=== PATIENT | male | born 1930 ===

== ENCOUNTER 2016-12-31 14:59 | Emergency (ER) | payer MEDICARE ==
[2016-12-31 15:06] VITALS: BP 150/63; PULSE 73; RESP 16; TEMP 99; O2SAT 96
--- NOTE | 2016-12-31 15:31 | ED PDOC ---
HPI: Seizure Time Seen by Provider: 12/31/16 14:59 Chief Complaint (Nursing): Seizure Chief Complaint (Provider): Seizure History Per: Family () History/Exam Limitations: no limitations Recent Seizure Activity Began: Hours Ago: (3.5) Length Of Seizures (Duration): Minutes (20) Associated Symptoms: denies: Incontinence Of Urine, Incontinence Of Stool Additional Complaint(s): 86 y/o male with a past medical history of seizure disorder who presents to the emergency department via ambulance accompanied by who witnessed 1 seizure this afternoon described as an absence seizure. As per history from , patient had 2 seizures yesterday as well which all lasted approximately 20 minutes each. Patient has no recollection of events. Denies shaking or incontinence. PMD: Dr. Dedrick Carter MD Past Medical History Reviewed: Historical Data, Nursing Documentation, Vital Signs Vital Signs: Last Vital Signs Temp 99.0 F 12/31/16 15:02 Pulse 73 12/31/16 15:02 Resp 16 12/31/16 15:02 BP 150/63 12/31/16 15:02 Pulse Ox 96 12/31/16 17:42 - Medical History PMH: Seizures - Family History Family History: States: Unknown Family Hx - Home Medications Home Medications: Ambulatory Orders Medication Instructions Recorded Donepezil [Aricept] 10 mg PO DAILY 12/31/16 Folic Acid 1 mg PO DAILY 12/31/16 Levetiracetam [Keppra] 250 mg PO BID 12/31/16 Memantine [Namenda] 10 mg PO BID 12/31/16 Phenytoin Sodium Extended 100 mg PO Q12 12/31/16 [Phenytoin Sodium Extended] Rosuvastatin Calcium [Crestor] 5 mg PO DAILY 12/31/16 - Allergies Allergies/Adverse Reactions: Allergies Allergy/AdvReac Type Severity Reaction Status Date / Time No Known Allergies Allergy Verified 12/31/16 15:06 Review of Systems ROS Statement: Except As Marked, All Systems Reviewed And Found Negative Genitourinary Male: Negative for: Incontinence Musculoskeletal: Negative for: Other (Shaking) Neurological: Positive for: Seizures (2 yesterday and 1 today) Physical Exam - Reviewed Nursing Documentation Reviewed: Yes Vital Signs Reviewed: Yes - Physical Exam Appears: Positive for: Non-toxic, No Acute Distress Head Exam: Positive for: ATRAUMATIC, NORMAL INSPECTION, NORMOCEPHALIC Skin: Positive for: Normal Color, Warm, Dry Eye Exam: Positive for: Normal appearance, EOMI, PERRL Neck: Positive for: Normal, Supple Cardiovascular/Chest: Positive for: Regular Rate, Rhythm. Negative for: Murmur Respiratory: Positive for: Normal Breath Sounds. Negative for: Accessory Muscle Use, Respiratory Distress Gastrointestinal/Abdominal: Positive for: Normal Exam, Soft. Negative for: Tenderness Extremity: Positive for: Normal ROM (Full). Negative for: Pedal Edema, Deformity Neurologic/Psych: Positive for: Alert, Oriented (x3). Negative for: Motor/ Sensory Deficits (Focal) - Laboratory Results Result Diagrams: 12/31/16 16:43 12/31/16 16:43 - ECG O2 Sat by Pulse Oximetry: 96 (RA) Pulse Ox Interpretation: Normal Medical Decision Making Medical Decision Making: Time: 15:00 Initial impression: Witnessed Seizure Initial plan: --Head CT --EKG --Alcohol Serum --CMP --Drug Screen, Urine --Urine DIP --CBC w/ diff --Reevaluation Time: 16:43 --Head CT FINDINGS: HEMORRHAGE: No acute parenchymal, subarachnoid or extra-axial hemorrhage. Hemorrhage. BRAIN: Minor chronic periventricular deep and subcortical white matter ischemic changes are present. Tiny chronic appearing lacunar type infarct left caudate and right thalamus. Moderate generalized volume loss. VENTRICLES: No obstructive hydrocephalus CALVARIUM: There are no acute calvarial fracture seen. . PARANASAL SINUSES: There is mild sclerosis and thickening of the posterolateral wall right maxillary antrum felt to be postinflammatory in etiology. . . Minor mucosal thickening also present. Questionable medial wall antrostomy defect. MASTOID AIR CELLS: Unremarkable as visualized. No inflammatory changes. OTHER FINDINGS: Changes of bilateral cataract surgery present. IMPRESSION: No acute intracranial hemorrhage. Mild chronic white matter ischemic changes. 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 Scribe Attestation: Documented by Anju Michaels, acting as a scribe for Isac Puga MD. Discussed with . Suggests increasing dose of Keppra and will follow in office in [place] on Wednesday. Provider Scribe Attestation: All medical record entries made by the Scribe were at my direction and personally dictated by me. I have reviewed the chart and agree that the record accurately reflects my personal performance of the history, physical exam, medical decision making, and the department course for this patient. I have also personally directed, reviewed, and agree with the discharge instructions and disposition. Disposition - Clinical Impression Clinical Impression: Seizure disorder - Patient ED Disposition Is Patient to be Admitted: No - Disposition Referrals: Cesar Argueta MD [Staff Provider] - Disposition: Routine/Home Disposition Time: 17:41 Condition: FAIR Additional Instructions: Increase Keppra to 500mg twice daily Instructions: Recurrent Seizures in Adults (ED) Forms: [employer] Connect (Welsh)
--- NOTE | 2016-12-31 16:46 | CT ---
PROCEDURE: CT scan brain dated 12/31/2016 HISTORY: r/o bleed COMPARISON: None available. TECHNIQUE: Axial computed tomography images were obtained through the head/brain without intravenous contrast. Radiation dose: Total exam DLP = 813.71 mGy-cm. This CT exam was performed using one or more of the following dose reduction techniques: Automated exposure control, adjustment of the mA and/or kV according to patient size, and/or use of iterative reconstruction technique. FINDINGS: HEMORRHAGE: No acute parenchymal, subarachnoid or extra-axial hemorrhage. Hemorrhage. BRAIN: Minor chronic periventricular deep and subcortical white matter ischemic changes are present. Tiny chronic appearing lacunar type infarct left caudate and right thalamus. Moderate generalized volume loss. VENTRICLES: No obstructive hydrocephalus CALVARIUM: There are no acute calvarial fracture seen. . PARANASAL SINUSES: There is mild sclerosis and thickening of the posterolateral wall right maxillary antrum felt to be postinflammatory in etiology. . . Minor mucosal thickening also present. Questionable medial wall antrostomy defect. MASTOID AIR CELLS: Unremarkable as visualized. No inflammatory changes. OTHER FINDINGS: Changes of bilateral cataract surgery present. IMPRESSION: No acute intracranial hemorrhage. Mild chronic white matter ischemic changes. 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
[2016-12-31 16:57] LABS: BASO # 0.1 K/uL (0.0-0.2); BASO % 0.5 % (0.0-2.0); EOS # 0.1 K/uL (0.0-0.7); EOS % 1.2 % (0.0-4.0); HEMATOCRIT 41.2 % (35.0-51.0); LYMPH % 9.8 % (20.0-40.0); MEAN CELL VOLUME 95.3 fl (80.0-94.0); MEAN CORPUSCULAR HEMOGLOBIN 32.4 pg (27.0-31.0); MEAN PLATELET VOLUME 9.1 fl (7.2-11.7); MONO # 0.8 K/uL (0.0-0.8); MONO % 7.8 % (0.0-10.0); NEUT # 8.3 K/uL (1.8-7.0); NEUT % 80.7 % (50.0-75.0); PLATELET COUNT 188 K/uL (130-400); RED CELL DISTRIBUTION WIDTH 12.9 % (11.5-14.5); WHITE BLOOD COUNT 10.3 K/uL (4.8-10.8)
[2016-12-31 17:12] LABS: ALB/GLOB RATIO 1.4 (1.0-2.1); ALCOHOL SERUM < 10 mg/dl (0-10); ALKALINE PHOSPHATASE 105 U/L (38-126); ALT/SGPT 30 U/L (21-72); AST/SGOT 29 U/L (17-59); BILIRUBIN,TOTAL 0.5 mg/dl (0.2-1.3); BLOOD UREA NITROGEN 13 mg/dl (9-20); CALCIUM 9.2 mg/dL (8.4-10.2); CARBON DIOXIDE 26 mmol/L (22-30); CHLORIDE 105 mmol/L (98-107); GFR AFRICAN-AMERICAN > 60; GLUCOSE,RANDOM 118 mg/dL (75-110); SODIUM 141 mmol/l (132-148); TOTAL PROTEIN 7.3 G/DL (6.3-8.2)
[2016-12-31 19:05] LABS: BASOPHIL 1 % (0-2); EOSINOPHIL 2 % (0-7); NEUTROPHIL 81 % (42-75); TOTAL CELLS COUNTED 100
--- NOTE | 2017-01-01 09:13 | CARD ---
APPROVED REPORT EKG Measurement Heart [id number] <Conclusion> Normal sinus rhythm Nonspecific T wave abnormality Abnormal ECG
== END 2016-12-31 19:28 | disposition home or self-care (01) ==
LOC: H.ER 14:59
DX: G40.909 Epilepsy, unspecified, not intractable, without status epilepticus (principal)
CPT/HCPCS: 70450; 80053; 82948; 85025; 93005; 99285; G0480

== ENCOUNTER 2018-04-13 12:01 | Observation (INO) | payer MEDICARE ==
[2018-04-13 12:03] VITALS: BMI 26.3
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
[2018-04-13 13:34] LABS: BASO % 0.5 % (0.0-2.0); EOS # 0.6 K/uL (0.0-0.7); EOS % 6.2 % (0.0-4.0); HEMOGLOBIN 13.9 g/dL (12.0-18.0); LYMPH # 1.2 K/uL (1.0-4.3); LYMPH % 12.7 % (20.0-40.0); MEAN CELL VOLUME 99.5 fl (80.0-94.0); MEAN CORPUSCULAR HEMOGLOBIN 33.2 pg (27.0-31.0); MEAN CORPUSCULAR HGB CONC 33.4 g/dL (33.0-37.0); MEAN PLATELET VOLUME 9.5 fl (7.2-11.7); MONO # 0.8 K/uL (0.0-0.8); MONO % 8.9 % (0.0-10.0); NEUT # 6.5 K/uL (1.8-7.0); NEUT % 71.7 % (50.0-75.0); RBC 4.18 Mil/uL (4.40-5.90); RED CELL DISTRIBUTION WIDTH 13.3 % (11.5-14.5); WHITE BLOOD COUNT 9.1 K/uL (4.8-10.8)
[2018-04-13 13:37] LABS: ALB/GLOB RATIO 1.3 (1.0-2.1); ALBUMIN 4.2 g/dL (3.5-5.0); ALT/SGPT 27 U/L (21-72); AST/SGOT 20 U/L (17-59); BLOOD UREA NITROGEN 14 mg/dl (9-20); CALCIUM 8.9 mg/dL (8.4-10.2); GFR NON-AFRICAN AMERICAN > 60
--- NOTE | 2018-04-13 14:08 | CT ---
Date of service: 04/13/2018 PROCEDURE: CT HEAD WITHOUT CONTRAST. HISTORY: r/o bleed COMPARISON: 12/31/2016 TECHNIQUE: Axial computed tomography images were obtained through the head/brain without intravenous contrast. Radiation dose: Total exam DLP = 818.47 mGy-cm. This CT exam was performed using one or more of the following dose reduction techniques: Automated exposure control, adjustment of the mA and/or kV according to patient size, and/or use of iterative reconstruction technique. FINDINGS: HEMORRHAGE: No intracranial hemorrhage. BRAIN: No mass effect or edema. Cerebral atrophy and chronic microvascular ischemic changes tiny subcortical/deep white matter The prior right thalamic and left caudate nucleus lacunar infarcts are similar. VENTRICLES: Unremarkable. No hydrocephalus. CALVARIUM: Unremarkable. PARANASAL SINUSES: Unremarkable as visualized. No significant inflammatory changes. MASTOID AIR CELLS: There is less focal retention cyst and/or focal mucosal thickening along the right maxillary sinus wall. The chronic right maxillary sinus wall cortical thickening connoting current current chronic inflammatory changes is a similar finding. No inflammatory changes. OTHER FINDINGS: None. IMPRESSION: No interval intracranial hemorrhage or mass effect. Cerebral atrophy and chronic microvascular ischemic changes tiny subcortical/deep white matter The prior right thalamic and left caudate nucleus lacunar infarcts are similar. Other findings as above.. No interval pathology noted
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
--- NOTE | 2018-04-13 19:28 | CARD ---
APPROVED REPORT Date of service: 04/13/2018 EKG Measurement Heart [id number] ID [id number] <Conclusion> Normal sinus rhythm Normal ECG
[2018-04-14] MEDS ORDERED: Pneumococcal 23-Valent Vaccine IM ONE (08:26)
[2018-04-14] MEDS: Enoxaparin 40 mg Syringe SC SCH (08:37)
--- NOTE | 2018-04-14 08:53 | CP.PCM.PN ---
Subjective - Date & Time of Evaluation Date of Evaluation: 04/14/18 Time of Evaluation: 07:45 - Subjective Subjective: Patient seen and examined at bedside. is also at bedside. Patient is sitting up in bed, appears less confused than yesterday. denies noticing any seizure activity. Patient denies headaches, visual changes, n/v. Charts, labs, and nurse notes reviewed. Objective - Vital Signs/Intake and Output Vital Signs (last 24 hours): Temp Pulse Resp BP Pulse Ox 97.5 F L 61 20 139/81 95 04/14/18 08:44 04/14/18 08:44 04/14/18 08:44 04/14/18 08:44 04/14/18 08:44 - Medications Medications: Current Medications Atorvastatin Calcium (Lipitor) 10 mg PO HS [facility] Last Admin: 04/13/18 21:18 Dose: 10 mg Donepezil HCl (Aricept) 10 mg PO HS [facility] Last Admin: 04/13/18 21:17 Dose: 10 mg Enoxaparin Sodium (Lovenox) 40 mg SC DAILY [facility]; Protocol Last Admin: 04/14/18 08:37 Dose: 40 mg Folic Acid (Folic Acid) 1 mg PO DAILY [facility] Last Admin: 04/14/18 08:38 Dose: 1 mg Levetiracetam (Keppra) 500 mg PO Q12 [facility] Last Admin: 04/14/18 08:37 Dose: 500 mg Memantine (Namenda) 10 mg PO Q12 [facility] Last Admin: 04/14/18 08:38 Dose: 10 mg Phenytoin Sodium (Dilantin) 100 mg PO Q12 [facility] Last Admin: 04/14/18 08:38 Dose: 100 mg - Labs Labs: 04/13/18 13:12 04/13/18 13:12 - Constitutional Appears: No Acute Distress - Eye Exam Eye Exam: EOMI, PERRL - ENT Exam ENT Exam: Mucous Membranes Moist - Respiratory Exam Respiratory Exam: Clear to Ausculation Bilateral - Cardiovascular Exam Cardiovascular Exam: REGULAR RHYTHM, +S1, +S2 - Neurological Exam Neurological Exam: Alert, Awake, CN II-XII Intact - Psychiatric Exam Psychiatric exam: Normal Affect Assessment and Plan - Assessment and Plan (Free Text) Assessment: 87 y/o male w/ hx of seizures and Alzheimer's admitted for observation for concern of syncope. Syncope vs. breakthrough seizure EKG: normal sinus rhythm Echo and carotid Doppler pending Head CT: no signs of hemorrhage or acute changes Negative tox screen Discussed case w/ patient's neurologist, Dr. Argueta; EEG ordered and will increase Keppra 500mg PO BID to 1000mg PO BID, Cont. 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
--- NOTE | 2018-04-14 15:41 | US ---
Date of service: 04/13/2018 PROCEDURE: Duplex ultrasound of the carotid and vertebral arteries. HISTORY: syncope COMPARISON: 05/21/2011 TECHNIQUE: Grayscale and duplex Doppler evaluation of the cervical carotid and vertebral arteries were performed. The common carotid, carotid bifurcations and cervical ICA and proximal ECA were evaluated. The vertebral arteries were evaluated for gross patency and direction. FINDINGS: RIGHT CAROTID ARTERIES: Common Carotid Artery: Maximal flow velocity of 52.0 cm/s. Carotid Bifurcation: Heterogeneous plaque formation. Internal Carotid Artery:Heterogeneous plaque formation. Maximal flow velocity of 63.6 cm/s. External Carotid Artery (proximal branches): Maximal flow velocity of 47.3 cm/s. ICA/CCA Ratio: 1.5 LEFT CAROTID ARTERIES: Common Carotid Artery: Maximal flow velocity of 47.2 cm/s. Carotid Bifurcation: Intimal thickening is present Internal Carotid Artery:Heterogeneous plaque formation. Maximal flow velocity of 55.3 cm/s. External Carotid Artery (proximal branches): Maximal flow velocity of 69.1 cm/s. ICA/CCA Ratio: 1.2 VERTEBRAL ARTERIES: Right Vertebral Artery: Patent. Antegrade flow. Left Vertebral Artery: Patent. Antegrade flow. OTHER FINDINGS: Atherosclerotic calcification present. IMPRESSION: No significant interval change compared to the prior examination(s). Right ICA degree of stenosis: Less than 50% Left ICA degree of stenosis: Less than 50% Reference Internal Carotid Artery (ICA) Peak Systolic Velocity (PSV) for above: 1. Less than 50% stenosis less than 125 cm/s peak systolic velocity 2. 50-69% stenosis 125-230cm/s peak systolic velocity 3. Greater than 70% but less than near occlusion greater than 230 cm/s peak systolic velocity
--- NOTE | 2018-04-14 19:07 | CARD ---
APPROVED REPORT Date of service: 04/14/2018 EXAM: Two-dimensional and M-mode echocardiogram with Doppler and color Doppler. Other Information Quality : GoodRhythm : NSR INDICATION Syncope 2D DIMENSIONS IVSd1.02 (0.7-1.1cm)LVDd4.16 (3.9-5.9cm) LVOT Diameter1.87 (1.8-2.4cm)PWd0.69 (0.7-1.1cm) IVSs1.45 (0.8-1.2cm)LVDs2.68 (2.5-4.0cm) FS (%) 35.4 %PWs1.14 (0.8-1.2cm) M-Mode DIMENSIONS Left Atrium (MM)5.07 (2.5-4.0cm)IVSd1.10 (0.7-1.1cm) Aortic Root3.03 (2.2-3.7cm)LVDd4.36 (4.0-5.6cm) Aortic Cusp Exc.1.88 (1.5-2.0cm)PWd0.80 (0.7-1.1cm) IVSs1.38 cmFS (%) 22 % LVDs3.42 (2.0-3.8cm)PWs1.27 cm Aortic Valve AoV Peak Yeisxyaq567.9cm/sAoV VTI32.9cmAO Peak GR.10mmHg LVOT Peak Lfsmzzkh054.7cm/Mra Mean GR.6mmHgAVA (VMAX)1.05cm2 AI P 1/2 Jsog692dn Mitral Valve MV E Mzhvdepd831.9cm/sMV DECEL YYUB251upWA A Mzpujmno112.9cm/s MV CSB202rmI/A ratio1.1MVA (PHT)2.06cm2 TDI Lateral E' Peak V8.07cm/sMedial E' Peak V8.64cm/sE/Lateral E'14.1 E/Medial E'13.2 Tricuspid Valve TR Peak Ixirqsil396yz/sRAP [id number] Peak Gr.29mmHg [id number] LEFT VENTRICLE The left ventricle is normal size. There is normal left ventricular wall thickness. The left ventricular systolic function is normal. The estimated ejection fraction is 55-60% No regional wall motion abnormalities noted.. Transmitral Doppler flow pattern is Grade II-pseudonormal filling dynamics. No left ventricle thrombus noted on this study. There is no ventricular septal defect visualized. There is no left ventricular aneurysm. There is no mass noted in the left ventricle. RIGHT VENTRICLE The right ventricle is normal size. There is normal right ventricular wall thickness. The right ventricular systolic function is normal. ATRIA The left atrium is moderately dilated. The right atrium size is normal. The interatrial septum is intact with no evidence for an atrial septal defect. AORTIC VALVE The aortic valve is normal in structure. Mild to moderate aortic regurgitation is present. There is no aortic valvular stenosis. There is no aortic valvular vegetation. MITRAL VALVE The mitral valve is normal in structure. There is no evidence of mitral valve prolapse. There is no mitral valve stenosis. There is mild to moderate mitral valve regurgitation noted. TRICUSPID VALVE The tricuspid valve is normal in structure. There is moderate tricuspid valve regurgitation noted. RVSP is calculated at 43 mm Hg. There is no tricuspid valve prolapse or vegetation. There is no tricuspid valve stenosis. PULMONIC VALVE The pulmonary valve is normal in structure. There is trace pulmonic valvular regurgitation. There is no pulmonic valvular stenosis. GREAT VESSELS The aortic root is normal in size. The ascending aorta is normal in size. The pulmonary artery is normal. The IVC is normal in size and collapses >50% with inspiration. PERICARDIAL EFFUSION There is no pericardial effusion. There is no pleural effusion. <Conclusion> The estimated ejection fraction is 55-60% Transmitral Doppler flow pattern is Grade II-pseudonormal filling dynamics. The left atrium is moderately dilated. Mild to moderate aortic regurgitation is present. There is mild to moderate mitral valve regurgitation noted. There is moderate tricuspid valve regurgitation noted. RVSP is calculated at 43 mm Hg.
[2018-04-15 05:18] VITALS: O2SAT 97
[2018-04-15 07:41] VITALS: BP 160/61; PULSE 66; RESP 20; TEMP 99.8
--- NOTE | 2018-04-15 08:48 | CP.PCM.DIS ---
Provider - Provider Date of Admission: 04/13/18 14:40 Attending physician: Radha Ruelas DO Consults: 04/14/18 20:27 Neurology Consult Routine Comment: Consulting Provider: Cisco Rodriguez Consulting Physician: Cisco Rodriguez Reason for Consult: Syncope Time Spent in preparation of Discharge (in minutes): 30 Diagnosis - Discharge Diagnosis (1) Seizure disorder Status: Chronic Comment: Pending EEG results. Pending Keppra results, but lab stated they received it yesterday, will take 2 days to get results. Keppra was increased to 1000 mg BID. F/U with Neuro, Dr. Argueta on wednesday Hospital Course - Lab Results Lab Results: Most Recent Lab Values WBC 9.1 K/uL (4.8-10.8) 04/13/18 13:12 RBC 4.18 Mil/uL (4.40-5.90) L 04/13/18 13:12 Hgb 13.9 g/dL (12.0-18.0) 04/13/18 13:12 Hct 41.6 % (35.0-51.0) 04/13/18 13:12 MCV 99.5 fl (80.0-94.0) H D 04/13/18 13:12 MCH 33.2 pg (27.0-31.0) H 04/13/18 13:12 MCHC 33.4 g/dL (33.0-37.0) 04/13/18 13:12 RDW 13.3 % (11.5-14.5) 04/13/18 13:12 Plt Count 152 K/uL (130-400) 04/13/18 13:12 MPV 9.5 fl (7.2-11.7) 04/13/18 13:12 Neut % (Auto) 71.7 % (50.0-75.0) 04/13/18 13:12 Lymph % (Auto) 12.7 % (20.0-40.0) L 04/13/18 13:12 Jones % (Auto) 8.9 % (0.0-10.0) 04/13/18 13:12 Eos % (Auto) 6.2 % (0.0-4.0) H 04/13/18 13:12 Baso % (Auto) 0.5 % (0.0-2.0) 04/13/18 13:12 Neut # (Auto) 6.5 K/uL (1.8-7.0) 04/13/18 13:12 Lymph # (Auto) 1.2 K/uL (1.0-4.3) 04/13/18 13:12 Jones # (Auto) 0.8 K/uL (0.0-0.8) 04/13/18 13:12 Eos # (Auto) 0.6 K/uL (0.0-0.7) 04/13/18 13:12 Baso # (Auto) 0.0 K/uL (0.0-0.2) 04/13/18 13:12 Sodium 141 mmol/l (132-148) 04/13/18 13:12 Potassium 4.0 MMOL/L (3.6-5.0) 04/13/18 13:12 Chloride 104 mmol/L (98-107) 04/13/18 13:12 Carbon Dioxide 25 mmol/L (22-30) 04/13/18 13:12 Anion Gap 16 (10-20) 04/13/18 13:12 BUN 14 mg/dl (9-20) 04/13/18 13:12 Creatinine 1.0 mg/dl (0.8-1.5) 04/13/18 13:12 Est GFR ( Amer) > 60 04/13/18 13:12 Est GFR (Non-Af Amer) > 60 04/13/18 13:12 Random Glucose 102 mg/dL (75-110) 04/13/18 13:12 Calcium 8.9 mg/dL (8.4-10.2) 04/13/18 13:12 Total Bilirubin 0.5 mg/dl (0.2-1.3) 04/13/18 13:12 AST 20 U/L (17-59) 04/13/18 13:12 ALT 27 U/L (21-72) 04/13/18 13:12 Alkaline Phosphatase 122 U/L (38-126) 04/13/18 13:12 Total Protein 7.5 G/DL (6.3-8.2) 04/13/18 13:12 Albumin 4.2 g/dL (3.5-5.0) 04/13/18 13:12 Globulin 3.3 gm/dL (2.2-3.9) 04/13/18 13:12 Albumin/Globulin Ratio 1.3 (1.0-2.1) 04/13/18 13:12 Phenytoin 6.8 ug/ML (10-20) L 04/14/18 04:35 - Hospital Course Hospital Course: 87 y/o male w/ hx of seizures and Alzheimer's admitted for suspected seizure episode. On admission patient vital signs were stable. Asymptomatic on admission. No evidence of seizure episode overnight. Pt's Neurology was consulted, Dr. Argueta. Contacted by phone. EEG was done at bedside, but still pending results. and will increase Keppra 500 mg PO BID to 1000 mg PO BID, Cont. Phenytoin 100mg PO BID. Phenytoin level: 6.8, Keppra levels pending. Neuro will f/u keppra levels as outpatient. Head CT reported as no evidence of acute findings, no intracranial hemorrhage. Carotid US reported as less than 50 % in Right, and left ICA. Echocardiogram reported as EF : 55-60 %, mild-mod aortic regurg, mild-mod mitral regurg, mod tricusp regur. Echo report discussed with family. Pt nedds F/U with PMD, and Cardiology as outpatient. Also as per neuro, Dr. Argueta, f/u in his office on next wednesday. Pt, and family informed of f/u. - Date & Time of H&P Date of H&P: 04/13/18 Time of H&P: 15:40 Discharge Exam - Head Exam Head Exam: ATRAUMATIC, NORMAL INSPECTION - Eye Exam Eye Exam: Normal appearance - ENT Exam ENT Exam: Mucous Membranes Moist - Respiratory Exam Respiratory Exam: Clear to PA & Lateral, NORMAL BREATHING PATTERN. absent: Prolonged Expiratory Phase, Rales, Rhonchi, Respiratory Distress, Stridor - Cardiovascular Exam Cardiovascular Exam: REGULAR RHYTHM, +S1, +S2 - GI/Abdominal Exam GI & Abdominal Exam: Normal Bowel Sounds, Soft. absent: Guarding, Rebound, Rigid, Tenderness - Back Exam Back exam: NORMAL INSPECTION. absent: CVA tenderness (L), CVA tenderness (R) - Neurological Exam Neurological exam: Alert, CN II-XII Intact, Normal Gait, Oriented x3 - Psychiatric Exam Psychiatric exam: Normal Affect, Normal Mood - Skin Skin Exam: Dry, Intact, Normal Color Discharge Plan - Discharge Medications Prescriptions: Cyanocobalamin [Vitamin B12 100 mcg Tab] 100 mcg PO DAILY 30 Days tab levETIRAcetam [Keppra] 1,000 mg PO BID #60 tab - Follow Up Plan Condition: STABLE Disposition: HOME/ ROUTINE Patient education suggested?: Yes Instructions: Seizures, Adult (DC), Syncope (Fainting) (DC) Referrals: Cesar Argueta MD [Staff Provider] - Kunal Jones MD [Staff Provider] - Cisco Rodriguez MD [Medical Doctor] -
[2018-04-15] MEDS: Enoxaparin 40 mg Syringe SC SCH (08:54)
== END 2018-04-15 11:32 | disposition home or self-care (01) ==
LOC: H.ER 12:01 → H.ERHOLD 14:40 → H.TEL 18:19
PROVIDERS: ADMIT Student in an Organized Health Care Education/Training Program; ATTEND Student in an Organized Health Care Education/Training Program
DX: G40.909 Epilepsy, unspecified, not intractable, without status epilepticus (principal); I08.0 Rheumatic disorders of both mitral and aortic valves; Z82.49 Family history of ischemic heart disease and other diseases of the circulatory system; Z83.3 Family history of diabetes mellitus; Z87.11 Personal history of peptic ulcer disease; Z87.891 Personal history of nicotine dependence; Z90.49 Acquired absence of other specified parts of digestive tract; Z79.899 Other long term (current) drug therapy; R41.82 Altered mental status, unspecified; R55 Syncope and collapse; D53.1 Other megaloblastic anemias, not elsewhere classified; F02.80 Dementia in other diseases classified elsewhere, unspecified severity, without behavioral disturbance, psychotic disturbance, mood disturbance, and anxiety; G30.9 Alzheimer's disease, unspecified
CPT/HCPCS: 36415; 70450; 80053; 80177; 80185; 85025; 93005; 93306; 93880; 96372; 99285; G0378; J1650